=== PATIENT | male | born 1940 | race Caucasian/White ===

== ENCOUNTER → 2016-09-22 | Outpatient (CLI) | payer OTHER ==
[~2016-09-22] MED LIST: AMLO5TAB4 PO; ASPI-664 PO; ATOR20TA38 PO; HYDR12.58 PO; LOSA25TA5 PO; METO5TAB58 PO; NIT3 SL; PHEN100C PO
== END | disposition home or self-care (01) ==
LOC: CRE 08:52
PROVIDERS: ATTEND Internal Medicine Interventional Cardiology
DX: I25.10 Atherosclerotic heart disease of native coronary artery without angina pectoris (principal); Z95.5 Presence of coronary angioplasty implant and graft
CPT/HCPCS: 93797

== ENCOUNTER 2017-11-30 08:23 | Day surgery (SDC) | END 2017-11-30 20:10 | disposition home or self-care (01) ==